=== PATIENT | male | born 2000 | race Caucasian/White ===

== ENCOUNTER → 2021-04-14 | Outpatient (CLI) | payer SELFPAY ==
[2021-04-16 12:48] LABS: CORONAVIRUS (COVID19) CSH-NRL Positive (Negative)
== END | disposition home or self-care (01) ==
LOC: LAB SHORT 18:00
PROVIDERS: Physician Assistant Medical
DX: Z20.822 Contact with and (suspected) exposure to COVID-19 (principal)
CPT/HCPCS: U0003

== ENCOUNTER 2024-05-12 12:26 | Emergency (ER) | payer OTHER ==
[~2024-05-12] VITALS: Ht 180.3 cm; Wt 104.3 kg
[2024-05-12 12:52] VITALS: BP 185/81
[2024-05-12] MEDS ORDERED: CYCL10 PO (14:02)
[2024-05-12] MEDS ORDERED: LIDO700A20 TOP (14:02)
[2024-05-12] MEDS ORDERED: IBUP800 PO (14:02)
== END 2024-05-12 14:17 | disposition home or self-care (01) ==
LOC: ER 12:26
DX: S46.912A Strain of unspecified muscle, fascia and tendon at shoulder and upper arm level, left arm, initial encounter (principal); V89.2XXA Person injured in unspecified motor-vehicle accident, traffic, initial encounter
CPT/HCPCS: 73030; 99283-25